=== PATIENT | female | born 1960 | race Caucasian/White ===

== ENCOUNTER 2020-02-04 19:37 | Emergency (ER) | payer BC, SELFPAY ==
[2020-02-04 19:42] VITALS: BP 179/79; PULSE 88; RESP 16; TEMP 36.3; O2SAT 100
[2020-02-04 20:03] VITALS: RESP 16
--- NOTE | 2020-02-04 20:25 | ED.GENADULT ---
HPI - General Adult General Chief complaint: Unspecified Stated complaint: I am trying not to go into anaphylatic shock Time Seen by Provider: 02/04/20 20:17 History of Present Illness HPI narrative: Patient is a 60-year-old female who presents to emergency department with chief complaint of allergic reaction. The patient states on Saturday she started having a feeling in her throat and started taking Benadryl. The patient is taken up to 20 Benadryl per day. The patient states his feels similar to whenever she had anaphylaxis before in the past patient states that she used some new fixative gel that had iodine in it. Patient states that this feels very similar to what he has had reactions in the past. Patient denies shortness of breath denies urticaria Related Data Allergies Allergy/AdvReac Type Severity Reaction Status Date / Time iodine Allergy Unknown Verified 05/07/13 07:54 shellfish derived Allergy Unknown Unknown Verified 02/10/18 13:13 Sulfa (Sulfonamide Allergy Unknown Verified 05/07/13 07:54 Antibiotics) tetanus toxoid, adsorbed Allergy Unknown Verified 05/07/13 07:54 Tetanus Vaccines and Toxoid Allergy Unknown Unknown Verified 02/10/18 13:13 iodine derivitives Allergy Severe Uncoded 05/07/13 07:54 SHELLFISH Allergy Unknown Uncoded 09/01/02 12:08 TETNUS DEISY DYE Allergy Unknown Uncoded 09/01/02 12:08 Review of Systems Review of Systems: Narrative: CONSTITUTIONAL: Denies fever, chills, or sweats. EYES: Denies visual changes, redness, or discharge. ENT: Denies rhinorrhea, congestion, sore throat, or otalgia. CARDIOVASCULAR: Denies chest pain, palpitations, or edema. RESPIRATORY: Denies cough or dyspnea. GASTROINTESTINAL: Denies abdominal pain, nausea, vomiting, or diarrhea. GENITOURINARY: Denies dysuria or hematuria. SKIN: Denies rash or itching. MUSCULOSKELETAL: Denies back pain, joint pain, or myalgia. NEUROLOGIC: Denies headache, numbness, or weakness. PSYCHIATRIC: Denies anxiety or depression. A 10 system review of systems was completed on the patient and is negative except for what is stated in the HPI. Nursing and ancillary documentation was reviewed. PMFSH Comments Prior anaphylactic reactions Patient denies illicit drug use Exam Narrative: Exam Narrative: GENERAL: Well-appearing, well-nourished, and in no acute distress. HEAD: Normocephalic, atraumatic. EYES: PERRLA and EOMI. ENT: Nares clear, no rhinorrhea or epistaxis. Mucous membranes moist. NECK: Supple. CHEST: Clear to auscultation. No respiratory distress. HEART: Regular rate and rhythm. No murmur heard. Normal peripheral pulses. ABDOMEN: Soft, nontender, nondistended, normal active bowel sounds. EXTREMITIES: Normal range of motion. No edema. SKIN: Warm, dry, no rash. NEURO: No focal deficits. Alert and oriented x3. PSYCH: Normal mood and affect. Course Vital Signs Vital signs: Vital Signs Temperature 36.3 C L 02/04/20 19:42 Pulse Rate 88 02/04/20 19:42 Respiratory Rate 16 02/04/20 19:42 Blood Pressure 179/79 H 02/04/20 19:42 Pulse Oximetry 100 02/04/20 19:42 Temperature 36.3 C L 02/04/20 19:42 Pulse Rate 88 02/04/20 19:42 Respiratory Rate 16 02/04/20 20:03 Blood Pressure 179/79 H 02/04/20 19:42 Pulse Oximetry 100 02/04/20 19:42 Medical Decision Making Vital Signs Vital Signs: Vital Signs Temperature 36.3 C L 02/04/20 19:42 Pulse Rate 88 02/04/20 19:42 Respiratory Rate 16 02/04/20 19:42 Blood Pressure 179/79 H 02/04/20 19:42 Pulse Oximetry 100 02/04/20 19:42 Temperature 36.3 C L 02/04/20 19:42 Pulse Rate 88 02/04/20 19:42 Respiratory Rate 16 02/04/20 20:03 Blood Pressure 179/79 H 02/04/20 19:42 Pulse Oximetry 100 02/04/20 19:42 Discharge Plan Discharge Clinical Impression: Allergic reaction Qualifiers: Encounter type: initial encounter Qualified Code(s): T78.40XA - Allergy, unspecified, initial encounter Patient Disposition: Still a [facility]
[2020-02-04] MEDS: methylPREDNISolone SOD SUCC 125 MG VIAL IM (20:39)
[2020-02-04 20:47] VITALS: BP 134/86; PULSE 88; RESP 16; TEMP 36.7; O2SAT 98
== END 2020-02-04 20:48 | disposition home or self-care (01) ==
PROVIDERS: Emergency Provider Emergency Medicine
DX: T78.40XA Allergy, unspecified, initial encounter (principal)
CPT/HCPCS: 96372; 99283; J2930

== ENCOUNTER 2021-03-17 14:03 | Emergency (ER) | payer BC, SELFPAY ==
--- NOTE | ~2021-03-17 | XR_ITS ---
EXAMINATION: XR chest 1V portable EXAM DATE: 03/17/2021 16:48 INDICATION: SOB, cough,COVID + TECHNIQUE: Portable AP frontal chest x-ray was obtained. Comparison is made to prior examination from 02/10/2018. FINDINGS: Small amount of bilateral ill-defined acute airspace disease suspected, could be COVID pneu monia given community prevalence, history provided. Cardiomediastinal silhouette is normal. There is no pneumothorax suspected. There are no pleural effusions. Mild thoracic spondylosis. IMPRESSION: Suspect small amount of ill-defined acute airspace disease, clinical correlation. Reviewed, dictated and finalized at location A. STACKER IMPRESSION: Suspect small amount of ill-defined acute airspace disease, clinic al correlation.
--- NOTE | ~2021-03-17 | NM_ITS ---
EXAMINATION: NM pulmonary perfusion EXAM DATE: 03/17/2021 17:03 INDICATION: Shortness of breath elevated D-dimer . TECHNIQUE: A perfusion lung scan was performed. The patient was injected with 5 mCi technetium 99m M AA and imaged. The Modified PIOPED 2 criteria used for interpretation of this perfusion only study, w ith 3 possible interpretations (PE present, PE absent, nondiagnostic) based on findings present, and correlated with a recent chest x-ray. More specifically, a high probability scan will be interpreted as pulmonary embolism present. A normal or near normal scan will be interpreted as pulmonary embolism absent. And finally an intermediate probability scan will be interpreted as nondiagnostic. Correlat ion is made to chest x-ray same date. FINDINGS: Chest x-ray same day demonstrated small amount of ill-defined bilateral airspace disease. S ubsegmental areas of mildly heterogeneous perfusion also present, matched defects. IMPRESSION: Nondiagnostic perfusion study. Reviewed, dictated and finalized at location A. TER AND DECORATOR APPRENTICE
[2021-03-17 14:09] VITALS: BP 184/91; PULSE 114; RESP 18; TEMP 37.1; O2SAT 96
--- NOTE | 2021-03-17 15:19 | ECG_ITS ---
Measurements Intervals [place] Rate: 75 P: 52 LA: 125 QRS: 56 QRSD: 96 T: 57 QT: 382 QTc: 428 Interpretive Statements SINUS RHYTHM CANNOT RULE OUT SEPTAL INFARCT, AGE INDETERMINATE BASELINE ARTIFACT- I, II, III, AVR, AVL, AVF, V4-V6 ABNORMAL ECG Electronically Signed On 03-17-2021 15:36:27 OPERATIONS TEAM LEADER by Henry Sanders D.O.
--- NOTE | 2021-03-17 15:20 | ED.SOB ---
HPI - SOB/Dyspnea General Chief Complaint: Shortness of Breath/Dyspnea Stated Complaint: diff breathing, covid + Time Seen by Provider: 03/17/21 15:18 Source: patient Mode of arrival: ambulatory Limitations: no limitations History of Present Illness HPI Narrative: Patient is a 61-year-old female complain of shortness of breath, worse with exertion, accompanied by fatigue, body aches, cough x5 days. Patient states that her shortness of breath is worse the past few days. Patient states that she tested positive for Covid on March 12. Patient denies any chest pain, abdominal pain, nausea, vomiting, diarrhea, fever or chills. Related Data Allergies Allergy/AdvReac Type Severity Reaction Status Date / Time Iodinated Contrast Media Allergy Severe Anaphylaxis Verified 02/04/20 20:49 iodine Allergy Severe Anaphylaxis Verified 02/04/20 20:49 shellfish derived Allergy Severe Anaphylaxis Verified 02/04/20 20:49 Sulfa (Sulfonamide Allergy Unknown Verified 05/07/13 07:54 Antibiotics) tetanus toxoid, adsorbed Allergy Unknown Verified 05/07/13 07:54 Tetanus Vaccines and Toxoid Allergy Unknown Unknown Verified 02/10/18 13:13 Review of Systems Review of Systems: All systems reviewed & are unremarkable except as noted in HPI and below Constitutional: Constitutional: Denies chills, Denies excessive sweating, Denies fever(s), Denies headache(s), Denies lethargy, Denies weakness and Denies weight loss Eyes: Eyes: Denies blurry vision, Denies change in vision and Denies loss of vision ENT: Denies dizziness, Denies ear discharge, Denies headache(s), Denies lip swelling, Denies epistaxis, Denies nasal congestion, Denies neck pain, Denies throat swelling and Denies tongue swelling Cardiovascular: Cardiovascular: Denies chest pain, Denies chest pain at rest, Denies chest pain with activity, Denies diaphoresis, Denies rapid heart rate, Denies edema, Denies irregular heart rhythm, Denies lightheadedness and Denies palpitations Respiratory: Respiratory: Denies chest congestion and Denies hemoptysis Gastrointestinal: Gastrointestinal: Denies abdominal pain, Denies melena, Denies hematochezia, Denies diarrhea, Denies nausea, Denies vomiting and Denies hematemesis Musculoskeletal: Musculoskeletal: Denies abnormal gait, Denies deformity, Denies joint swelling, Denies limited range of motion, Denies neck pain and Denies numbness Neurologic: Denies Abnormal speech present, Denies abnormal gait, Denies confusion, Denies dizziness, Denies headache(s), Denies focal weakness, Denies loss of vision, Denies numbness, Denies Other visual disturbances, Denies Sensory deficit (Neuro) and Denies weakness Psychiatric: Psychiatric: Denies confusion, Denies depression, Denies auditory hallucinations, Denies homicidal ideation and Denies suicidal ideation Endocrine: Endocrine: Denies cold intolerance, Denies excessive sweating, Denies fatigue, Denies heat intolerance and Denies palpitations Hematologic/Lymphatic: Hematologic/Lymphatic: Denies easy bleeding and Denies easy bruising Allergic/Immunologic: Allergic/Immunologic: Denies lip swelling, Denies throat swelling and Denies tongue swelling PMFSH Comments Past medical history: None Family history: Hypertension Social history: Non-smoker. No EtOH or drug use Exam Const: General: cooperative, healthy appearing, comfortable, no acute distress, well developed, alert and awake; No confusion Orientation/consciousness: oriented to person, oriented to place, oriented to time, patient oriented x3 and No confusion Limitations: no limitations HENMT: Head: normal to inspection, normocephalic and atraumatic Ears: hearing grossly normal bilaterally, TM normal on the right and TM normal on the left General nose exam: Normal external nose present, Normal nares present and No nasal discharge present Face and sinus: normal facial exam Mouth: Yes Normal oral and palatal mucosa present, Yes lip normal, Yes tongue normal and Yes oropharyn
[2021-03-17 15:32] VITALS: BP 159/78; PULSE 78; RESP 18; O2SAT 95
[2021-03-17] MEDS: ALBUTEROL SULFATE NEB 2.5 MG/0.5 ML INH 5 MG INHALATION (15:48)
[2021-03-17] MEDS: IPRATROPIUM BR 0.02% INH SOLN 0.5 MG/2.5 ML VIAL INHALATION (15:48)
[2021-03-17 15:49] VITALS: PULSE 77; RESP 13
[2021-03-17 15:53] LABS: Alveolar/Arterial O2 Gradient 34.4 mmHg; Base Excess ABG 4.1 mEq/l (+/-2.0); Carboxyhemoglobin 2.2 % THb (0-2.0); Fractional Inspired Oxygen 21 %; Methemoglobin ABG 0.2 %THb (0-1.5); Oxygen Content ABG 18.6 %vol (16.0-22.0); Oxygen Saturation ABG 95.9 % (95.0-100.0); Oxyhemoglobin 92.2 % THb (90.0-100.0); PCO2 ABG 35.4 mmHg (35.0-45.0); PO2 ABG 72.9 mmHg (80.0-100.0); PO2 FiO2 Ratio Arterial Blood 3.47 %; Reduced Hemoglobin 5.4 %THb (0-5.0); Total Hemoglobin 14.3 g/dL (12.0-18.0)
[2021-03-17 15:54] LABS: Basophils Percent Auto 0.4 % (0.2-1.2); Eosinophils Absolute Auto 0.1 K/mm3 (0-0.3); Eosinophils Percent Auto 0.9 % (0-4.4); Hematocrit 42.9 % (37.0-47.0); Hemoglobin 13.7 g/dL (12.0-15.0); Immature Granulocyte Absolute 0.07 K/mm3 (0.00-0.031); Immature Granulocyte Percent A 0.7 % (0-0.5); Lymphocytes Absolute Auto 2.35 K/mm3 (0.9-3.2); Lymphocytes Percent Auto 24.1 % (18.3-44.2); Mean Corpuscular HGB Conc 31.9 g/dl (32-36); Mean Corpuscular Hemoglobin 29.8 pg (26-34); Mean Corpuscular Volume 93.3 fl (80-100); Mean Platelet Volume 9.4 fl (7.4-10.4); Monocytes Absolute Auto 0.9 K/mm3 (0.1-0.6); Monocytes Percent Auto 8.8 % (2.6-8.5); Neutrophils Absolute Auto 6.4 K/mm3 (1.3-6.7); Neutrophils Percent Auto 65.1 % (45.5-73.1); Platelet Count Result 292 k/mm3 (150-375); Red Cell Distribution Width 13.3 % (11.5-14.5); White Blood Count 9.8 K/mm3 (4.5-10.0)
[2021-03-17 15:54] LABS: pH ABG 7.501 (7.350-7.450)
[2021-03-17 15:55] LABS: Device ROOM AIR; Modified Allen's Test Pass; Site Drawn LEFT RADIAL
[2021-03-17] MEDS: DEXAMETHASONE SOD PHOS INJ 4 MG/ML VIAL 10 MG IV PUSH (16:00)
[2021-03-17 16:08] LABS: Prothrombin Time 12.7 Seconds (11.1-14.7)
[2021-03-17 16:21] LABS: Alanine Aminotransferase 75 U/L (4-35); Albumin Level 3.8 g/dL (3.5-5.1); Alkaline Phosphatase 61 U/L (38-126); Anion Gap 7 mmol/L (8-16); Aspartate Amino Transferase 55 U/L (14-36); Bilirubin,Total 0.6 mg/dL (0.2-1.3); Blood Urea Nitrogen 15 mg/dL (7-17); Calcium 9.3 mg/dL (8.4-10.2); Carbon Dioxide 29 mmol/L (22-30); Chloride 103 mmol/L (98-107); Estimated CRCL calculation 68 ml/min; Estimated Glomerular Filt Rate > 60; Glucose 105 mg/dL (65-110); Lactic Acid Reflex 1.1 mmol/L (0.7-2.1); Potassium 4.1 mmol/L (3.4-5.0); Sodium 139 mmol/L (137-145)
[2021-03-17 16:42] LABS: NT Pro B Type Natriuretic Pept 171 pg/mL (5-100)
[2021-03-17 16:47] LABS: Troponin I < 0.012 ng/mL (0.000-0.034)
[2021-03-17] MEDS: SODIUM CHLORIDE 0.9% IV 1,000 ML 999 ML IV CONT (17:15)
[2021-03-17 18:46] VITALS: BP 152/104; PULSE 84; RESP 20; O2SAT 95
== END 2021-03-17 18:47 | disposition home or self-care (01) ==
PROVIDERS: Emergency Provider Emergency Medicine; PCP Internal Medicine
DX: U07.1 COVID-19 (principal); J12.82 Pneumonia due to coronavirus disease 2019; R94.31 Abnormal electrocardiogram [ECG] [EKG]
CPT/HCPCS: 36415; 36600; 71045; 78580; 80053; 82375; 82805; 83050; 83605; 83880; 84484; 85025; 85380; 85610; 85730; 93005; 94640; 96361; 96374; 99284; A9540; J1100; J7030

== ENCOUNTER 2024-11-07 16:14 | Emergency (ER) | payer MEDICARE, SELFPAY ==
--- NOTE | ~2024-11-07 | CT_ITS ---
EXAMINATION: CT diagnostic chest wo gt, 11/07/2024 18:10 CDT HISTORY: Rib fracture COMPARISON: No comparisons available. TECHNIQUE: CT scan of the chest was performed without IV contrast. One or more of the following dose reduction techniques were used: automated exposure control, adjustment of the mA and/or kV according to patient size, use of iterative reconstruction technique. FINDINGS: No significant coronary calcification is present ([id number]) LUNGS: Small simple appearing right pleural effusion. No tracheomalacia. No bronchiectasis. Minimal emphysematous changes. Minimal apical scarring bilaterally. Lingular atelectasis noted. Small anterior apical basilar pneumothorax noted. Minimal contusive changes noted in the right lung. There is a small posterior component of hydropneumothorax. HEART AND PERICARDIUM: Within normal limits. AORTA: Normal caliber aorta. ADENOPATHY/MEDIASTINUM: Calcified mediastinal and subcentimeter hilar lymph nodes noted. LIMITED VIEWS OF THE ABDOMEN: Punctate calcified splenic granulomas. OSSEOUS STRUCTURES: No sclerotic or lytic lesions. There are minimally displaced fractures of the lateral right fifth, sixth seventh and eighth ribs. OVERLYING SOFT TISSUES: Partially imaged ventral hernia noted, deviating the abdominal wall 3 cm containing large bowel. THYROID: The thyroid is unremarkable. IMPRESSION: Right-sided pneumothorax with posterior hydropneumothorax. Right-sided rib fractures. Minimal contusive change in the right lung Reviewed, dictated and finalized at location A. IMPRESSION: Right-sided pneumothorax with posterior hydropneumothorax. Right-sided rib frac tures. Minimal contusive change in the right lung
--- NOTE | ~2024-11-07 | XR_ITS ---
EXAMINATION: [id number], 11/07/2024 17:10 CDT HISTORY: fall 3 days ago, pain under rt breast COMPARISON: No comparisons available. Findings: Nondisplaced fractures of the right lateral sixth, seventh and eighth ribs. No significant degenerative changes. Trace right apical pneumothorax is suspected with minimal basilar pleural effusions. COPD changes noted in the lungs. Impression: Right-sided rib fractures with small pneumothorax. CT is recommended Results discussed with the referring clinician immediately Reviewed, dictated and finalized at location A. Impression: Right-sided rib fractures with small pneumothorax. CT is recommended Results discussed with the referring clinician immediately
[2024-11-07 16:17] VITALS: BP 170/82; PULSE 100; RESP 18; TEMP 36.6; O2SAT 94
--- NOTE | 2024-11-07 17:23 | ED_ITS ---
HPI - Fall General Chief Complaint: Fall Stated Complaint: fell, pain right chest possible broke ribs Time Seen by Provider: 11/07/24 17:22 Source: patient Mode of arrival: ambulatory Limitations: no limitations History of Present Illness HPI Narrative: 64 years old white female tripped and fell at home landed on something on the right side chest. Complaining of right chest pain, denies any other injuries. Patient drove herself to the emergency room. Related Data Allergies Allergy/AdvReac Type Severity Reaction Status Date / Time Iodinated Contrast Media Allergy Severe Anaphylaxis Verified 02/04/20 20:49 iodine Allergy Severe Anaphylaxis Verified 02/04/20 20:49 shellfish derived Allergy Severe Anaphylaxis Verified 02/04/20 20:49 Sulfa (Sulfonamide Allergy Unknown Verified 05/07/13 07:54 Antibiotics) tetanus toxoid, adsorbed Allergy Unknown Verified 05/07/13 07:54 Tetanus Vaccines and Toxoid Allergy Unknown Unknown Verified 02/10/18 13:13 Review of Systems Review of Systems: All systems reviewed & are unremarkable except as noted in HPI and below Exam Narrative: General appearance: Well-developed, well-nourished Skin: Normal color Head: Normocephalic, nontraumatic Eyes: Clear conjunctiva ENT: Oropharynx normal, ears normal, nose normal Neck: Supple, nontender Chest and respiratory: Airway patent, no respiratory distress, no accessory muscle use, horizontal bruises across the mid axillary line of the lower ribs, severely tender Heart: Regular rate/rhythm Abdomen: Soft, nontender, no organomegaly, quiet bowel sounds Vascular: Normal peripheral pulses, normal capillary refill. Musculoskeletal: Normal range of motion, nontender back Neurologic: Alert and oriented ?3, METER TESTER POLYPHASE is normal as tested, no gross motor deficit Course Consultations Consultation #1: DR RAMIREZ, EMERGENCY ROOM AT [facility] ACCEPTED PATIENT TRANSFER Date: 11/07/24 Vital Signs Vital signs: Vital Signs Temperature 36.6 C 11/07/24 16:17 Pulse Rate 100 11/07/24 16:17 Respiratory Rate 18 11/07/24 16:17 Blood Pressure 170/82 H 11/07/24 16:17 Pulse Oximetry 94 11/07/24 16:17 Oxygen Delivery Room Air 11/07/24 16:17 Temperature 36.6 C 11/07/24 16:17 Pulse Rate 98 11/07/24 17:25 Respiratory Rate 18 11/07/24 17:25 Blood Pressure 168/76 H 11/07/24 17:25 Pulse Oximetry 97 11/07/24 17:25 Oxygen Delivery Room Air 11/07/24 16:17 MDM - Fall MDM Narrative Medical decision making narrative: Patient tripped and fell at home landed on the right chest Vital signs showing blood pressure 170/82 otherwise within normal limit Physical examination showing horizontal bruises across the mid axillary line on the right side severely tender to touch Differential diagnosis include rib fracture, with hemothorax or pneumothorax. X-ray of the right ribs showed right-sided rib fracture with small pneumothorax, nondisplaced fracture of the right lateral 6, 7th and [address] chest without contrast showed FOR BROKEN RIBS ON THE RIGHT SIDE, SMALL PNEUMOTHORAX, SMALL HYDROPNEUMOTHORAX AND LUNG CONTUSION. PATIENT WAS ACCEPTED FOR TRANSFERRED TO [facility] FOR FURTHER EVALUATION SHE DECLINED AND SIGNED AGAINST MEDICAL ADVICE I DECLARE THAT I HAVE PERSONALLY EXPLAINED TO THE PATIENT THE RISKS AND CONSEQUENCES INVOLVED IN LEAVING THIS FACILITY AT THIS TIME. THE BENEFITS OF CONTINUED TREATMENT AND/OR HOSPITALIZATION. AND THE ALTERNATIVES. IF ANY. TO CONTINUED TREATMENT AND/OR HOSPITALIZATION. IF APPLICABLE.I HAVE NOT IDENTIFIED ANY PSYCHOSIS, DRUGS, MENTAL ILLNESS, OR MEDICAL ILLNESS THAT ALTERS DECISION- MAKING CAPACITY (REASONING ABILITIES ). Differential Diagnosis Differential diagnosis: Likely other (As above) Imaging Data My impression: Impressions Ribs w/Chest X-Ray 11/07/24 17:50 Impression: Right-sided rib fractures with small pneumothorax. CT is recommended Results discussed with the referring clinician immediately Chest CT 11/07/24 18:52 IMPRESSION: Right-sided pneumothorax with posterior hydropneumothorax. Right-sided rib fractures. Minimal contusive change in the right lung Radiologist's impression: Impressions Ribs w/Chest X-Ray 11/07/24 17:50 Impression: Right-sided rib fractures with small pneumothorax. CT is recommended Results discussed with the referring clinician immediately Chest CT 11/07/24 18:52 IMPRESSION: Right-sided pneumothorax with posterior hydropneumothorax. Right-sided rib fractures. Minimal contusive change in the right lung Critical Care Time Critical Care Time Critical Care Time: No Discharge Plan Discharge Clinical Impression: Multiple rib fractures, Pneumothorax, Hydropneumothorax, Contusion of lung Patient Disposition: Left Against Medical Advice Condition: Guarded Prognosis Patient Language: French Prescriptions: New hydrocodone-acetaminophen 5-325 mg tablet 1 tablet PO Q4H Qty: 20 0RF No Action methylprednisolone [Medrol (Jas)] 4 mg tablets,dose pack See Rx Instructions .ROUTE .COMPLEX Qty: 21 0RF Rx Instructions: orally per package directions Follow-up/Referrals: Jennifer,MD [place] [Primary Care Provider]
[2024-11-07 17:25] VITALS: BP 168/76; PULSE 98; RESP 18; O2SAT 97
[2024-11-07 19:45] VITALS: BP 165/86; PULSE 96; RESP 18; O2SAT 97
== END 2024-11-07 20:15 | disposition left against medical advice (07) ==
PROVIDERS: Emergency Provider Emergency Medicine; PCP Internal Medicine
DX: S22.41XA Multiple fractures of ribs, right side, initial encounter for closed fracture (principal); S27.2XXA Traumatic hemopneumothorax, initial encounter; S27.321A Contusion of lung, unilateral, initial encounter; W01.10XA Fall on same level from slipping, tripping and stumbling with subsequent striking against unspecified object, initial encounter
CPT/HCPCS: 71101; 71250; 99284